=== PATIENT | male | born 1985 | race Two or more races ===

== ENCOUNTER 2019-12-09 17:15 | Outpatient (CLI) | payer OTHER ==
--- NOTE | 2019-12-10 14:09 | MRI Report ---
Reason: RT SHOULDER PAIN Procedure Date: 12/09/2019 Accession Number: [id number] / [id number] Procedure: MRI - Shoulder RT W/O CPT Code: Final Report FULL RESULT: EXAM: RIGHT SHOULDER MRI WITHOUT CONTRAST EXAM DATE: 12/09/2019 06:22 PM. CLINICAL HISTORY: RT SHOULDER PAIN. COMPARISON: None. TECHNIQUE: Multiplanar, multisequence T1-weighted and fluid-sensitive sequences of the shoulder without contrast. Other: None. FINDINGS: Acromioclavicular Region: The acromion is type I. The acromioclavicular joint is unremarkable. The coracoacromial and coracoclavicular ligaments are intact. No subacromial/subdeltoid bursal fluid. Glenohumeral Region: No subluxation. No effusion or loose bodies. The articular cartilage is unremarkable. The glenohumeral ligaments and joint capsule are unremarkable. Bone Marrow: No fracture, marrow edema or bone lesions. Labrum: The labrum is unremarkable on this nonarthrographic study. Musculature/Rotator Cuff: There is supraspinatus and infraspinatus tendinosis. The teres minor and subscapularis tendons are unremarkable. No rotator cuff tear. No edema or fatty atrophy. Biceps Tendon: The long head of the biceps tendon and biceps nava are intact. Other: The subcutaneous tissues are unremarkable. IMPRESSION: 1. Supraspinatus and infraspinatus tendinosis. No rotator cuff tear. RADIA
== END 2019-12-09 17:16 | disposition home or self-care (01) ==
LOC: DI 17:15
PROVIDERS: ATTEND General Practice
DX: M75.91 Shoulder lesion, unspecified, right shoulder (principal)

== ENCOUNTER 2022-09-25 00:28 | Emergency (ER) | payer OTHER ==
[2022-09-25 01:36] LABS: CORONAVIRUS 229E-RESP PCR NOT DETECTED; CORONAVIRUS HKU1-RESP PCR NOT DETECTED; CORONAVIRUS NL63-RESP PCR NOT DETECTED; CORONAVIRUS OC43-RESP PCR NOT DETECTED; SARS-CoV-2 -RESP PCR PANEL NOT DETECTED
[2022-09-25 01:37] LABS: B. PARAPERTUSSIS- RESP PCR PAN NOT DETECTED; B. PERTUSSIS- RESP PCR PANEL NOT DETECTED; C. PNEUMONIAE- RESP PCR PANEL NOT DETECTED; HUMAN METAPNEUMOVIRUS NOT DETECTED; INFLUENZA A H3- RESP PCR PANEL DETECTED; INFLUENZA A- RESP PCR PANEL NOT DETECTED; INFLUENZA B - RESP PCR PANEL NOT DETECTED; M. PNEUMONIAE- RESP PCR PANEL NOT DETECTED; PARAINFLUENZA VIRUS 1 NOT DETECTED; PARAINFLUENZA VIRUS 2 NOT DETECTED; PARAINFLUENZA VIRUS 3 NOT DETECTED; PARAINFLUENZA VIRUS 4 NOT DETECTED; RHINOVIRUS/ENTEROVIRUS DETECTED; RSV- RESP PCR PANEL NOT DETECTED
--- NOTE | 2022-09-25 01:50 | ED Physician Documentation ---
History of Present Illness - Stated complaint Stated Complaint: FLU SYMPTOMS - Chief complaint Chief Complaint: Fever - History obtained from History obtained from: Patient - History of Present Illness Timing: How many days ago (2-3) Pain level max: 0 Pain level now: 0 - Additonal information Additional information: c/o 2-3 days of chills, myalgias, generalized headache, fatigue. Took nyquil at approximately 6 PM tonight. Review of Systems Constitutional: reports: Fever, Chills, Myalgias, Fatigue, Sweats Ears: denies: Ear pain Throat: denies: Sore throat Cardiac: reports: Reviewed and negative Respiratory: reports: Reviewed and negative GI: reports: Reviewed and negative PD PAST MEDICAL HISTORY - Past Medical History Past Medical History: No - Present Medications Home Medications: Ambulatory Orders Medication Instructions Recorded Confirmed No Known Home Medications 09/25/22 09/25/22 - Allergies Allergies/Adverse Reactions: Allergies Allergy/AdvReac Type Severity Reaction Status Date / Time amoxicillin Allergy Unknown Verified 09/25/22 00:37 Penicillins Allergy Unknown Verified 09/25/22 00:36 - Living Situation Living Arrangement: reports: At home PD ED PE NORMAL - Vitals Vital signs reviewed: Yes - General General: Alert and oriented X 3, No acute distress, Well developed/nourished - HEENT HEENT: Pharynx benign, Other (bilateral conjunctival injection) - Neck Neck: Supple, no meningeal sign - Cardiac Cardiac: RRR, No murmur - Respiratory Respiratory: No respiratory distress, Clear bilaterally Results - Vitals Vitals: Oxygen O2 Source Room air - Labs Labs: Laboratory Tests 09/25/22 00:30 Nasal Adenovirus (PCR) NOT DETECTED Nasal B. parapertussis DNA (PCR) NOT DETECTED Nasal Coronavir 229E PCR NOT DETECTED Nasal Coronavir HKU1 PCR NOT DETECTED Nasal Coronavir NL63 PCR NOT DETECTED Nasal Coronavir OC43 PCR NOT DETECTED Nasal Enterovir/Rhinovir PCR DETECTED A Nasal Influenza A H3 PCR DETECTED A Nasal Influenza B PCR NOT DETECTED Nasal Influenza A PCR NOT DETECTED Nasal Parainfluen 1 PCR NOT DETECTED Nasal Parainfluen 2 PCR NOT DETECTED Nasal Parainfluen 3 PCR NOT DETECTED Nasal Parainfluen 4 PCR NOT DETECTED Nasal RSV (PCR) NOT DETECTED Nasal B.pertussis DNA PCR NOT DETECTED Nasal C.pneumoniae (PCR) NOT DETECTED Graham Human Metapneumo PCR NOT DETECTED Nasal M.pneumoniae (PCR) NOT DETECTED Nasal SARS-CoV-2 (PCR) NOT DETECTED PD MEDICAL DECISION MAKING - ED course Complexity details: reviewed results, considered differential, d/w patient ED course: Respiratory PCR panel is positive for influenza A H3 as well as entero/rhinovirus. No other tests indicated at this time; his symptoms and fever are compatible with diagnosis of influenza. Does not have criteria that place him at greater risk regarding influenza (and thus anti-influenza rx such as tamiflu is not indicated). Diagnosis d/w patient, return precautions reviewed. He is provided a work note Departure - Departure Disposition: Home, Self Care Clinical Impression: Influenza A Condition: Good Instructions: ED Fever Control, ED Flu Comments: You tested positive tonight for influenza A. This should run its course over the next 4-5 days; during that time, you will likely have sweats, chills, fevers, headache, body aches. You need to rest at home (influenza is very contagious), keep hydrated, and take tylenol or ibuprofen as needed for fever per the label instructions. You also tested positive for rhinovirus; this is a "common cold" virus and should also run its course without specific treatment Forms: Activity restrictions Discharge Date/Time: 09/25/22 02:05
[2022-09-25] MEDS ORDERED: IBUPROFEN 600 MG TABLET PO STA (01:58)
[2022-09-25 02:05] VITALS: BP 130/71
== END 2022-09-25 02:05 | disposition home or self-care (01) ==
LOC: ED 00:28
DX: J10.1 Influenza due to other identified influenza virus with other respiratory manifestations (principal); Z20.822 Contact with and (suspected) exposure to COVID-19
CPT/HCPCS: 87633; 99282; 99283; A9270

== ENCOUNTER 2023-01-02 09:57 | Outpatient (CLI) | payer OTHER ==
[2023-01-02 10:25] VITALS: BP 120/76
--- NOTE | 2023-01-02 10:25 | SLEEP CARE CONSULTATION ---
Information from patient questionnaire entered by Ligia Finley. I have reviewed and concur with the information entered by Ligia Finley. This document represents the service I personally performed and the decisions made by me, Roberta Marley ARNP. History of Present Illness Service Date and Time: 01/02/2023 0957 Reason for Visit: New patient Chief Complaint: reports: Snoring, Observed pauses in breathing, Fatigue, Frequent awakenings at night Date of Onset: AT LEAST THREE YRS Usual bedtime: 08-0830 pm Time it takes to fall asleep: 30-45MIN Snores at night: Yes Observed to quit breathing while asleep: Yes Sleeps alone due to snoring: Yes Number of times waking at night: 3 Reasons for waking at night: reports: Snoring, Other (UNKNOWN REASONS ). 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 His current complaints are snoring, observed pauses in breathing, fatigue and frequent night awakenings. He states he is snoring so loud that his is sleeping in separate room. Other roommates have told him he snores loudly. All have told him that he stopped breathing at night too. He is tired through the day and not waking up feeling rested. He does wake up frequently at night but denies feeling like he is choking or waking up gasping for air. He denies drowsy driving and does not normally take naps during the day. - Parasomnia Symptoms Ever been unable to move upon waking from sleep: No Walks in sleep: No Talks in sleep: Yes Ever acted out dreams in sleep: No Ever felt weak in the knees when startled or emotional: No Bothered by creepy, crawly, restless sensations in legs: No Problems with memory or concentration: No Subjective Initial Conley Sleepiness Scale score: 16 (12/31/2022) Past Medical History Past Medical History: reports: Anxiety, Depression, Mood disorder Social History The patient's occupation is a AM. Patient is and lives in . Have you smoked in the past 12 months: No Alcohol use: Yes Alcohol amount and frequency: 1-2 DRINKS 1-2 TIMES A WEEK Caffeine use: Yes Caffeine amount and frequency: 8-12OZ DAILY Family History Family history of sleep disordered breathing: Yes Family Hx Sleep Apnea: Mother: Snoring Allergies and Home Medications Known drug allergies: Yes (AMOXICILLIN AND PENICIILIN ) Drug allergies reviewed: Yes Home medication list reviewed: Yes Allergy and home medication list: Medications: Lexapro 20 mg daily Review of Systems Cardiovascular: denies: high blood pressure Respiratory: denies: shortness of breath Gastrointestinal: denies: heartburn Neurological: denies: headaches, head trauma Psychiatric: reports: anxiety, depression, mood disorder Ear/Nose/Throat: reports: wisdom teeth removed. denies: injury to nose, tonsillectomy Endocrine: denies: thyroid disease Immunologic: denies: allergies to food or environment Physical Exam Vital signs obtained and entered by: LIGIA Bang MA Blood Pressure: 120/76 (LEFT ARM) Cuff size: regular Heart Rate: 74 O2 Saturation: 98 Height: 5 ft 8 in Weight: 212 lb 3.2 oz Body Mass Index: 32.2 BMI Classification: Obese Neck circumference: 16.5 Mouth and throat: narrow oropharynx Soft palate: long Hard palate: normal Uvula: long, edematous Uvula visualization: 25% Mallampati Class III Tongue: enlarged in size with teeth pitts on lateral edges Tonsils: 1+ Neck: normal w/o lymphadenopathy or thyromegaly Heart: regular rate and rhythm Lungs: clear bilaterally Impression and Plan 1. Suspected Obstructive Sleep Apnea-Hypopnea Syndrome, as suggested by a history of loud and irregular snoring, observed cessation of breath while asleep, morning headache, frequent awakening during the night, unrefreshed sleep, and excessive daytime sleepiness. Narrow oropharynx and obesity are common predisposing factors for obstructive sleep apnea-hypopnea syndrome. I recommend proceeding to polysomnography to confirm the diagnosis and to assess severity. If the patient has significant sleep disordered breathing, a manual CP AP titration study will also be performed to find the optimal treatment pressure. I informed the patient of what the sleep studies involve and after some discussion, obtained agreement to proceed. The pathophysiology of obstructive sleep apnea-hypopnea syndrome was discussed with the patient and health risks of cardiovascular and cerebrovascular disease if not treated. 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 Patient agreed to plan. * Schedule polysomnography * Avoid long distance driving or driving when feeling sleepy. * Avoid alcohol, sedative and muscle relaxant around bedtime. * Attempt to lose weight. * Review instructions provided by trained office staff on how to prepare for the sleep study. * Return for follow-up after sleep study completed. Counseling Topics: Weight loss health impact Visit Type: In Office Time Spent with Patient (minutes): 30 Provider Statement: I spent 100% of the Face to Face Visit with the patient with greater than 50% spent counseling the patient and coordination of care.
== END 2023-01-02 09:58 | disposition home or self-care (01) ==
LOC: SC 09:57
PROVIDERS: ATTEND Nurse Practitioner Family
DX: R06.83 Snoring (principal); G47.8 Other sleep disorders; R06.81 Apnea, not elsewhere classified; R51.9 Headache, unspecified; R53.83 Other fatigue; E66.9 Obesity, unspecified; Z68.32 Body mass index [BMI] 32.0-32.9, adult
CPT/HCPCS: 99203; 99212

== ENCOUNTER 2023-01-16 14:16 | Outpatient (CLI) | payer OTHER | END 2023-01-16 14:17 | disposition home or self-care (01) | LOC: SC 14:16 | PROVIDERS: ATTEND Nurse Practitioner Family | DX: G47.33 Obstructive sleep apnea (adult) (pediatric) (principal) | CPT/HCPCS: 95806 ==

== ENCOUNTER 2023-01-22 16:02 | Outpatient (CLI) | payer OTHER ==
--- NOTE | 2023-01-22 16:41 | SLEEP CARE CONSULTATION ---
Information from patient questionnaire entered by Ligia Finley. I have reviewed and concur with the information entered by Ligia Finley. This document represents the service I personally performed and the decisions made by , Roberta Marley ARNP. 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 I explained the pathophysiology behind obstructive sleep apnea. We then spent quite a bit of time discussing different treatment options. For mild obstructive sleep apnea, surgery and oral appliance are alternatives to nasal CPAP therapy but in moderate or severe cases, nasal CPAP is the most effective and reliable treatment. Because apnea is primarily in supine position, then positional management therapy could be effective. Methods discussed such as positioning with pillows to prevent supine sleep. I reviewed the impact of weight changes on sleep apnea and strongly recommended losing weight. After some discussion, the patient opted to go with the nasal CPAP therapy. Nasal autoCPAP set at 4-15 cmH20 will be ordered with rationale explained. A manual titration study will be ordered if unable to find optimal pressure with office adjustments. I explained how CPAP machine works and what to expect when using the machine. Using CPAP every night in order to get used to it was emphasized. Patient advised to put CPAP mask on before getting into bed so as not to fall asleep without CPAP. To assist acclimation to CPAP use, it could also be used for a short time during day while reading or watching TV. The patient was instructed to call the CPAP supplier to discuss any mechanical problem that may occur. If the mask given is uncomfortable or is difficult to keep on through the night even with adjustment, contact the CPAP supplier as many will replace with another mask style if notified before 30 days. If snoring or perceives is not getting enough air or too much air from the machine, notify this office. Patient counseled not drink alcohol less than 4 hours before bedtime as it can increase snoring and apnea. Patient was cautioned about risks of drowsy driving until sleepiness symptoms resolve. Patient denies drowsy driving. Sleep Study - Results Type of Sleep Study: Polysomnography (completed 01-16-23) Prior sleep studies: No Polysomnography/Home Sleep Study results: Physician Impression: The quality of the study is good. The length of the study is adequate (> 240 minutes). Please also see the tabulated and graphic data. 1. Obstructive Sleep Apnea-Hypopnea (ICD-10 G47.33), mild, with an AHI of 12.7/hr and florentino SaO2 of 79%. During the study, the patient had 33 apneas (33 obstructive, 0 central, 0 mixed) and 64 hypopneas. The longest episode lasted 88.5 seconds. The patient did not sleep supine during this study. 2. Hypoxemia (ICD-10 R09.02), moderate, with the lowest oxygen saturation of 79 % and 5.6 minutes with SaO2 under 90%. Baseline oxygen saturation was normal (Average oxygen saturation was 94%). Allergies and Home Medications Drug allergies reviewed: Yes (amoxicillin, penicillins) Home medication list reviewed: Yes (no changes) Review of Systems Review of systems same as previous: Yes (no changes) Physical Exam Vital signs obtained and entered by: LIGIA Bang MA Blood Pressure: 100/60 (left arm) Cuff size: regular Heart Rate: 75 O2 Saturation: 97 Height: 5 ft 8 in Weight: 216 lb 9.6 oz Body Mass Index: 32.9 BMI Classification: Obese Impression and Plan 1. Obstructive Sleep Apnea-Hypopnea Syndrome, mild, with lowest oxygen saturation of 79%. Obviously this is the cause of the patients symptoms of unrefreshed sleep, and excessive daytime sleepiness. Positive pressure therapy could benefit anxiety, depression and mood disorder. As mentioned above, the patient will be started on nasal autoCPAP therapy with pressure set at 4-15 cmH2 O. Compliance guidelines also reviewed. A copy of compliance guidelines will be given for reference at check out. * Nasal auto CPAP therapy, pressure at 4-15 cmH2O. * Attempt to lose weight. * Avoid alcohol consumption near bedtime. * Avoid supine sleep until using CPAP. * The patient is again cautioned about driving until sleepiness completely resolves. * Return one month after CPAP obtained. I will assess response to therapy and compliance at that time. Counseling Topics: Weight loss health impact Visit Type: In Office Time Spent with Patient (minutes): 20 Provider Statement: I spent 100% of the Face to Face Visit with the patient with greater than 50% spent counseling the patient and coordination of care.
[2023-01-22 16:42] VITALS: BP 100/60
== END 2023-01-22 16:03 | disposition home or self-care (01) ==
LOC: SC 16:02
PROVIDERS: ATTEND Nurse Practitioner Family
DX: G47.33 Obstructive sleep apnea (adult) (pediatric) (principal); E66.9 Obesity, unspecified; Z68.32 Body mass index [BMI] 32.0-32.9, adult
CPT/HCPCS: 99212; 99213

== ENCOUNTER 2024-03-31 07:30 | Outpatient (CLI) | payer OTHER ==
--- NOTE | 2024-03-31 11:49 | MRI Report ---
PROCEDURE: Shoulder RT WO INDICATIONS: PAIN IN RIGHT SHOULDER TECHNIQUE: Noncontrast oblique coronal T2 fast spin echo with fat saturation, oblique sagittal T1 spin echo and T2 fast spin echo with fat saturation, axial T1 spin echo and T2 fast spin echo with fat saturation t hrough the shoulder. COMPARISON: None. FINDINGS: Image quality: Excellent. Rotator cuff: Low-grade grade articular and bursal surface partial-thickness tear involving distal dailey praspinatus at its insertion on humeral head is seen extending to muscular tendinous junction. Low-gr dina articular surface partial-thickness involving distal infraspinatus at its insertion on humeral he ad is noted. Distal subscapularis tendinosis is seen. No full-thickness rotator cuff tendon rupture. No rotator cuff muscle atrophy on sagittal images. Bones and bursae: No bone marrow contusions or fractures. Mild acromioclavicular joint osteoarthriti c changes are seen. Small amount of joint effusion and subacromial subdeltoid bursal fluid is noted. No gross loose bodies. Capsule and soft tissues: In the absence of intra-articular contrast, the labrum and glenohumeral li gaments appear intact. Small sublabral foramen is seen. The long head of the biceps tendon demonstrat es normal location and morphology. The rotator interval appears normal, without fibrosis. The corac ohumeral ligament is normal in thickness. IMPRESSION: 1. Low-grade articular and bursal surface partial-thickness involving distal supraspinatus extending to muscular tendinous junction. Low-grade articular surface partial-thickness involving distal infras pinatus. Distal subscapularis tendinosis. No full-thickness rotator cuff tendon rupture. 2. Mild acromioclavicular joint osseous arthritis. No fracture or dislocation. Small joint effusion a nd subacromial subdeltoid bursal fluid, no loose bodies. 3. No evidence of focal labral tear. Small sublabral foramen which is a normal variant. Reviewed by: Eulalio Gupta MD on 03/31/2024 11:48 AM PDT Approved by: Eulalio Gupta MD on 03/31/2024 11:48 AM PDT Station ID: [id number]
== END 2024-03-31 07:31 | disposition home or self-care (01) ==
LOC: DI 07:30
PROVIDERS: ATTEND Student in an Organized Health Care Education/Training Program
DX: M75.111 Incomplete rotator cuff tear or rupture of right shoulder, not specified as traumatic (principal); M19.011 Primary osteoarthritis, right shoulder; M25.411 Effusion, right shoulder